=== PATIENT | male | born 1950 | race Caucasian/White ===

== ENCOUNTER → 2016-11-02 | Outpatient (CLI) | payer MEDICARE, MEDICAID ==
[2016-11-02 15:53] LABS: Blood Urea Nitrogen 15 mg/dL (9-20); Non-African American GFR(MDRD) >60 (>60 ml/min/1.73 sqM)
--- NOTE | 2016-11-02 16:48 | CT ---
EXAMINATION TYPE: CT abdomen pelvis w con DATE OF EXAM: 11/02/2016 4:40 PM COMPARISON: NONE HISTORY: Pt states of left side abdominal pain x1 month. CT DLP: 851.7 mGycm CONTRAST: CT scan of the abdomen and pelvis is performed with Oral Contrast and with IV Contrast, patient injec pam with 100 mL of Omnipaque 300. FINDINGS: LUNG BASES-: No visible nodule. No infiltrate. LIVER/GB: No calcified gallstones. No space occupying hepatic lesion. Biliary tree is of normal ca liber. PANCREAS: No inflammation. No distinct mass. SPLEEN: No splenic enlargement. No lesion seen. ADRENALS: No nodule. No thickening. KIDNEYS/BLADDER: No hydronephrosis. No nephrolithiasis. No disctinct renal mass. Urinary bladder g rossly unremarkable. BOWEL: Normal appendix. Normal bowel caliber. No inflammation. Sigmoid diverticulosis without diver ticulitis. Small sliding-type hiatal hernia noted. GENITAL ORGANS: No gross abnormality. LYMPH NODES: No greater than 1cm abdominal or pelvic lymph nodes are appreciated. AORTA: No significant abnormality. OSSEOUS STRUCTURES: No significant abnormality is seen. OTHER: No significant additional abnormality is seen. IMPRESSION: 1. Small sliding-type hiatal hernia. 2. Sigmoid diverticulosis without diverticulitis.
== END | disposition home or self-care (01) ==
LOC: RADCTMAIN 15:04
PROVIDERS: ATTEND Internal Medicine
DX: K57.30 Diverticulosis of large intestine without perforation or abscess without bleeding (principal); K44.9 Diaphragmatic hernia without obstruction or gangrene; R10.9 Unspecified abdominal pain
CPT/HCPCS: 82565; 84520; 74177; 36415; Q9967

== ENCOUNTER → 2017-07-02 | Outpatient (CLI) | payer MEDICARE, MEDICAID ==
[2017-07-02 10:18] LABS: Appearance,Urine Clear (Clear); Bilirubin,Urine Negative (Negative); Glucose,Urine (UA) Negative (Negative); Ketones,Urine Negative (Negative); Leukocyte Esterase,Urine Negative (Negative); Nitrite,Urine Negative (Negative); Protein,Urine Negative (Negative); UA Billing (MACRO vs. MICRO) CHEM; Urobilinogen,Urine <2.0 mg/dL (<2.0)
[2017-07-02 10:20] LABS: CH 29.8; CHCM 32.5; HCT 46.4 % (39.0-53.0); HDW 2.52; HGB 14.5 gm/dL (13.0-17.5); MCH 28.8 pg (25.0-35.0); MCHC 31.2 g/dL (31.0-37.0); MCV 92.3 fL (80.0-100.0); Mean Platelet Volume 7.7; RBC 5.03 m/uL (4.30-5.90); RDW 14.6 % (11.5-15.5); WBC 5.3 k/uL (3.8-10.6)
[2017-07-02 10:37] LABS: Partial Thromboplastin Time 23.9 sec (22.0-30.0); Prothrombin Time 10.2 sec (9.0-12.0)
[2017-07-02 10:43] LABS: Potassium 5.3 mmol/L (3.5-5.1)
--- NOTE | 2017-07-02 14:19 | XR ---
EXAMINATION TYPE: XR chest 2V DATE OF EXAM: 07/02/2017 COMPARISON: NONE INDICATION: Asthma TECHNIQUE: Frontal and lateral views of the chest are obtained. FINDINGS: The heart size is normal. The pulmonary vasculature is normal. The lungs are clear. IMPRESSION: 1. No acute pulmonary process.
== END | disposition home or self-care (01) ==
LOC: LABWHC1 09:20
DX: Z01.818 Encounter for other preprocedural examination (principal)
CPT/HCPCS: 36415; 71020; 80051; 81003; 82947; 85027; 85610; 85730

== ENCOUNTER → 2018-01-11 | Outpatient (CLI) | payer MEDICARE, MEDICAID ==
--- NOTE | 2018-01-11 14:50 | CONS ---
CONSULTATION Consultation note for sleep apnea. A 67-year-old male patient, who was involved in a single episode of atrial fibrillation in July of 2017. The patient is converted and currently is back to normal sinus rhythm on a combination of metoprolol, and Eliquis. Her cardiac catheterization was negative for coronary artery disease. Known to have bronchial asthma, maintained on Symbicort. The patient is referred to me for evaluation of sleep apnea. He has mild soft snoring especially when he sleeps on his back. Occasional nocturia and a few instances he was waking up gasping for air. However this has not become a recurrent problem. No hypersomnia or drowsiness or sleepiness during the day. He does not take any naps. He does not falling asleep during day-to-day activities or driving. He goes to bed around 10:30 pm, wakes up 7:00 am in the morning. He states his sleep quality to be solid and decent. No restlessness in lower extremities. No nocturnal palpitations or chest pain or shortness of breath. PAST MEDICAL HISTORY: 1. Paroxysmal atrial fibrillation. 2. Bronchial asthma. PAST SURGICAL HISTORY: 1. Cataract surgery. 2. Right knee replacement. DRUG ALLERGIES: Not known. OUTPATIENT MEDICATIONS: Include metoprolol 25 mg once a day. Flecainide twice a day. Eliquis 5 mg p.o. twice a day. Singular 10 mg p.o. daily, Protonix 40 mg p.o. daily, Symbicort 160/4.5 once a day. SOCIAL HISTORY: Nonsmoker. Drinks 1 glass of wine every night. No history of alcohol, no history of IV drugs. FAMILY HISTORY: Negative for sleep apnea. REVIEW OF SYSTEMS: 12-point review of system was done and positive findings are mentioned above in history of present illness. No reported insomnia. No choking. No sleepwalking. No dry mouth. No anxiety or panic attacks. No palpitation. No heartburn. No sweating. No sleep talking. No restlessness in lower extremities. No sexual dysfunction. No claustrophobia. No depression. No nocturnal shortness of breath or chest pain or any swelling in lower extremities. PHYSICAL EXAMINATION: BP is 131/79, pulse 57, respirations 14, temperature 98.1, saturation 96% on room air. Weight is 188. Height is 5 feet 9 inches, BMI is 27.7, neck size 15-1/2 inches, [place] score is at 3. GENERAL APPEARANCE: Calm, comfortable. Head is atraumatic, normocephalic. NECK: Supple. There is grinding of the teeth, and there has been a significant overbite with crowding of posterior pharynx. Mallampati class IV. micrognathia. LUNGS: Clear to auscultation. HEART: Sounds regular rhythm. Normal S1, S2. No S3, S4. No murmurs. ABDOMEN: Soft, nontender. No organomegaly. EXTREMITIES: No edema. No cyanosis or clubbing. NEUROLOGIC: The patient is alert and oriented x3. There is no focal neurological deficits. PSYCHIATRIC: The patient is appropriate mood and affect. SKIN: Negative for any wounds or ulceration. IMPRESSION: 1. Paroxysmal atrial fibrillation. The patient had significant episode of atrial fibrillation which has recovered and patient is back to his normal sinus rhythm. Concern for obstructive sleep apnea based on his snoring. Anatomically the patient had an overbite and Mallampati class IV. He has mild snoring, yet no major hypersomnia or sleepiness. [place] score is only at 3. 2. Bronchial asthma, currently inactive and stable. PLAN: Proceed with a home sleep study as a screening tool for sleep apnea. Will evaluate this patient for any sleep breathing disorder. Rule out any nocturnal oxygen desaturation. Looking for any significant sleep time activities that could potentially contribute to his cardiac arrhythmia. Encourage weight loss. Sleep in a sidewise body position. Avoid alcohol drinking late at night. We will continue to follow. MMODL / IJN: [id number] /
== END | disposition home or self-care (01) ==
LOC: SLEEP 10:26
PROVIDERS: ATTEND Internal Medicine Critical Care Medicine
DX: I48.0 Paroxysmal atrial fibrillation (principal); J45.909 Unspecified asthma, uncomplicated; Z79.01 Long term (current) use of anticoagulants; Z79.899 Other long term (current) drug therapy; Z98.49 Cataract extraction status, unspecified eye; Z96.651 Presence of right artificial knee joint
CPT/HCPCS: 99211

== ENCOUNTER → 2018-07-14 | Outpatient (CLI) | payer MEDICARE, MEDICAID ==
[2018-07-14 09:33] LABS: HGB 14.1 gm/dL (13.0-17.5); MCH 28.5 pg (25.0-35.0); MCHC 30.6 g/dL (31.0-37.0); MCV 93.3 fL (80.0-100.0); Mean Platelet Volume 7.1; Platelet Count 218 k/uL (150-450); RBC 4.92 m/uL (4.30-5.90); RDW 14.1 % (11.5-15.5); WBC 5.9 k/uL (3.8-10.6)
[2018-07-14 10:18] LABS: ALT 26 U/L (21-72); AST 20 U/L (17-59); Alkaline Phosphatase 56 U/L (38-126); Anion Gap 7 mmol/L; Blood Urea Nitrogen 16 mg/dL (9-20); Calcium 9.6 mg/dL (8.4-10.2); Carbon Dioxide 26 mmol/L (22-30); Chloride 110 mmol/L (98-107); Cholesterol 201 mg/dL (<200); Glucose 98 mg/dL (74-99); HDL Cholesterol 49 mg/dL (40-60); LDL Cholesterol,Calculated 134 mg/dL (0-99); Potassium 4.9 mmol/L (3.5-5.1); Sodium 143 mmol/L (137-145); Total Bilirubin 0.8 mg/dL (0.2-1.3); Total Protein 6.5 g/dL (6.3-8.2); Triglycerides 88 mg/dL (<150)
[2018-07-14 10:26] LABS: Appearance,Urine Clear (Clear); Bilirubin,Urine Negative (Negative); Blood,Urine Trace (Negative); Color,Urine Yellow; Glucose,Urine (UA) Negative (Negative); Ketones,Urine Negative (Negative); Leukocyte Esterase,Urine Negative (Negative); Mucus,Urine Occasional /hpf; Nitrite,Urine Negative (Negative); PH, Urine 5.5 (5.0-8.0); Protein,Urine Trace (Negative); RBC,Urine 3 /hpf (0-5); Urobilinogen,Urine <2.0 mg/dL (<2.0); WBC,Urine <1 /hpf (0-5)
[2018-07-14 10:39] LABS: Prostate Specific Antigen 0.24 ng/mL (0.00-4.00)
== END | disposition home or self-care (01) ==
LOC: LABWHC1 08:27
PROVIDERS: ATTEND Internal Medicine
DX: E78.5 Hyperlipidemia, unspecified (principal); N40.1 Benign prostatic hyperplasia with lower urinary tract symptoms; K21.9 Gastro-esophageal reflux disease without esophagitis; Z12.5 Encounter for screening for malignant neoplasm of prostate
CPT/HCPCS: 36415; 80053; 80061; 81001; 84153; 85027

== ENCOUNTER 2019-10-10 08:01 | Day surgery (SDC) | payer MEDICAID, MEDICARE ==
[2019-10-05 13:44] VITALS: BMI 25.5
[~2019-10-10 08:01] MED LIST: LACTATED RINGERS 1,000 ML IV SCH; LIDOCAINE 1% 20 ML VIAL (10MG/ML) FOR IV START INTRADERMA PRN
[2019-10-10 08:55] VITALS: TEMP 98
[2019-10-10] MEDS ORDERED: PROPOFOL 10 MG/ML 20 ML VIAL IV ONE (09:16)
[2019-10-10 09:52] VITALS: PULSE 61; RESP 16
--- NOTE | 2019-10-10 09:55 | P.PCN ---
Date of Procedure: 10/10/19 Description of Procedure: BRIEF HISTORY: Patient is a 69-year-old male presenting for outpatient colonoscopy for evaluation of positive Cologard. Last colonoscopy was in 2008 and essentially normal. He denies any bowel habits or abdominal pain reported. Patient underwent testing with Cologard which she states was positive. PROCEDURE PERFORMED: Colonoscopy with polypectomy. PREOPERATIVE DIAGNOSIS: Positive Cologard, last colonoscopy 2008. ESTIMATED BLOOD LOSS: Minimal. IV sedation per Anesthesia. PROCEDURE: After informed consent was obtained, the patient, was brought into the endoscopy unit. IV sedation was administered by Anesthesia under continuous monitoring. Digital rectal examination was normal. Initially the Olympus CF-190 flexible video colonoscope was then inserted in the rectum, gradually advanced into the cecum without any difficulty. Careful examination was performed as the scope was gradually being withdrawn. Ileocecal valve and the appendiceal orifice were visualized and appeared normal. The terminal ileum was intubated and appeared normal. Prep was excellent. Mucosa of the cecum, ascending colon, transverse colon, descending colon, sigmoid colon, and rectum appeared normal. Diminutive 1 mm ileocecal valve polyp removed with cold forceps. Diminutive 2 mm ascending colon polyp removed with cold forcep polypectomy. Diminutive 2 mm sigmoid colon polyp removed with cold forcep polypectomy. Large 13 mm pedunculated sigmoid colon polyp removed with hot snare polypectomy. A few scattered sigmoid diverticula noted. Retroflexion was performed in the rectum and no lesions were seen. The patient tolerated the procedure well. IMPRESSION: 3 diminutive polyps removed with cold forceps from the ileocecal valve, ascending colon and sigmoid colon. Large pedunculated sigmoid polyp removed with hot snare polypectomy. Mild sigmoid diverticulosis. RECOMMENDATIONS: Findings of this examination were discussed with the patient and his . Okay to resume diet. OKAY to resume medications today except for Eliquis therapy which should be held for an additional 48 hours. Await pathology from polypectomies. Anticipate repeat colonoscopy in 3 years for high-risk colon polyps.
[2019-10-10 10:10] VITALS: BP 146/90
== END 2019-10-10 10:41 | disposition home or self-care (01) ==
LOC: ORWHC2ENDO 08:01
PROVIDERS: ATTEND Internal Medicine
DX: D12.0 Benign neoplasm of cecum (principal); D12.5 Benign neoplasm of sigmoid colon; K63.5 Polyp of colon; K57.30 Diverticulosis of large intestine without perforation or abscess without bleeding; I48.91 Unspecified atrial fibrillation; J44.9 Chronic obstructive pulmonary disease, unspecified; Z79.51 Long term (current) use of inhaled steroids; Z79.01 Long term (current) use of anticoagulants; Z79.899 Other long term (current) drug therapy; Z98.890 Other specified postprocedural states
CPT/HCPCS: 88305; 45380; 45385; J2704

== ENCOUNTER 2023-03-16 07:55 | Day surgery (SDC) | payer MEDICARE ==
[2023-03-12 09:44] VITALS: BMI 25.1
[~2023-03-16 07:55] MED LIST changes: -LIDOCAINE 1% 20 ML VIAL (10MG/ML) FOR IV START INTRADERMA PRN
[2023-03-16 08:22] VITALS: RESP 16; TEMP 97
[2023-03-16] MEDS ORDERED: LIDOCAINE 1% (10MG/ML) FOR IV START INTRADERMA ONE (08:29)
--- NOTE | 2023-03-16 08:35 | P.GSHP ---
History of Present Illness H&P Date: 03/16/23 Chief Complaint: History of colon polyps, screening 73-year-old male here for colonoscopy. Last colonoscopy 2-3 years ago. Patient apparently had polyps at the time and was told to do a short-term follow-up. Prior to that has not had polyps. No family history of colon cancer. No bowel complaints. Past Medical History Past Medical History: Atrial Fibrillation, Asthma, COPD Additional Past Medical History / Comment(s): states "failed cologaurd" History of Any Multi-Drug Resistant Organisms: None Reported Past Surgical History: Heart Catheterization, Joint Replacement, Orthopedic Surgery Additional Past Surgical History / Comment(s): total right knee, grisel cataracts Past Anesthesia/Blood Transfusion Reactions: No Reported Reaction Smoking Status: Smoker, current status unknown - Past Family History Mother Family Medical History: No Reported History Father Family Medical History: Cancer Additional Family Medical History / Comment(s): lung brain Medications and Allergies Home Medications Medication Instructions Recorded Confirmed Type Budesonide/Formoterol Fumarate 2 puff INHALATION RT-BID PRN 08/04/17 03/12/23 History [Symbicort 160-4.5 Mcg Inhaler] Pantoprazole Sodium [Protonix] 40 mg PO DAILY 08/04/17 03/12/23 History Apixaban [Eliquis] 5 mg PO BID #60 tab 08/06/17 03/12/23 Rx Metoprolol Tartrate 25 mg PO BID 03/12/23 03/12/23 History Mirabegron [Myrbetriq] 50 mg PO DAILY 03/12/23 03/12/23 History Propafenone [Rythmol] 1 tab PO BID 03/12/23 03/12/23 History Rosuvastatin [Crestor] 5 mg PO DAILY 03/12/23 03/12/23 History Tamsulosin [Flomax] 0.4 mg PO DAILY 03/12/23 03/12/23 History Allergies Allergy/AdvReac Type Severity Reaction Status Date / Time No Known Allergies Allergy Verified 03/16/23 08:12 Surgical - Exam Vital Signs Temp Pulse Resp BP Pulse Ox 97 F L 74 16 124/74 98 03/16/23 08:21 03/16/23 08:21 03/16/23 08:21 03/16/23 08:21 03/16/23 08:21 Physical exam: General: Well-developed, well-nourished HEENT: Normocephalic, sclerae nonicteric Abdomen: Nontender, nondistended Extremities: No edema Neuro: Alert and oriented Assessment and Plan (1) Colon cancer screening Narrative/Plan: Will proceed with colonoscopy at this time. Current Visit: Yes Status: Acute Code(s): Z12.11 - ENCOUNTER FOR SCREENING FOR MALIGNANT NEOPLASM OF COLON SNOMED Code(s): 048028995
[2023-03-16] MEDS ORDERED: PROPOFOL 10 MG/ML 20 ML VIAL IV ONE (08:37)
--- NOTE | 2023-03-16 08:49 | P.PCN ---
Date of Procedure: 03/16/23 Procedure(s) Performed: PREOPERATIVE DIAGNOSIS: Colon cancer screening with history of polyps POSTOPERATIVE DIAGNOSIS: Ascending colon polyp, rectal polyp, diverticulosis PROCEDURE: Colonoscopy with snare polypectomy ANESTHESIA: MAC SURGEON: Brent Leigh M.D. SPECIMENS: Polyps ENDOSCOPIC PROCEDURE: The patient was placed on the endoscopy table in the left decubitus position. The Olympus colonoscope was inserted into the anus and passed under direct visualization to the base of the cecum. The appendiceal orifice was visualized. From that point the scope was slowly withdrawn inspecting all surfaces carefully. There were no neoplastic inflammatory or polypoid lesions throughout the cecum. In the ascending colon a small polyp was seen and removed using the snare with cautery technique. The transverse descending and sigmoid colon appeared normal. In the rectum another small polyp was seen and removed in a similar technique. There was mild left-sided diverticulosis. Digital rectal examination was normal. The patient was taken to the recovery room in stable condition per anesthesia guidelines. RECOMMENDATIONS: Await biopsy results. Anticipate repeat colonoscopy 5 years
[2023-03-16 09:16] VITALS: BP 138/78; PULSE 63
== END 2023-03-16 09:37 | disposition home or self-care (01) ==
LOC: ORWHC2ENDO 07:55
PROVIDERS: ATTEND Surgery
DX: Z12.11 Encounter for screening for malignant neoplasm of colon (principal); D12.2 Benign neoplasm of ascending colon; D12.8 Benign neoplasm of rectum; K57.30 Diverticulosis of large intestine without perforation or abscess without bleeding; I48.91 Unspecified atrial fibrillation; J44.9 Chronic obstructive pulmonary disease, unspecified; F17.200 Nicotine dependence, unspecified, uncomplicated; Z79.51 Long term (current) use of inhaled steroids; Z79.01 Long term (current) use of anticoagulants; Z79.899 Other long term (current) drug therapy
CPT/HCPCS: 88305; 45385; J2704

== ENCOUNTER → 2023-09-09 | Outpatient (CLI) | payer MEDICARE ==
--- NOTE | 2023-09-09 10:37 | XR ---
EXAMINATION TYPE: XR chest 2V DATE OF EXAM: 09/09/2023 COMPARISON: 08/04/2017 HISTORY: Shortness of breath TECHNIQUE: Frontal and lateral views of the chest are obtained. FINDINGS: Scattered senescent parenchymal changes noted. Hyperinflation compatible with COPD. No evidence for infiltrate. No evidence for atelectasis. Heart size is stable. Mediastinal structures are stable and grossly unremarkable. No evidence for hilar prominence. Degenerative changes dorsal spine. IMPRESSION: 1. No evidence for acute pulmonary disease.
== END | disposition home or self-care (01) ==
LOC: RADXRMAIN 10:15
PROVIDERS: ATTEND Internal Medicine
DX: R06.02 Shortness of breath (principal); R05.9 Cough, unspecified
CPT/HCPCS: 71046

== ENCOUNTER → 2024-03-20 | Outpatient (CLI) | payer MEDICARE ==
[2024-03-21 03:48] LABS: ALT 38 U/L (10-49); AST 25 U/L (14-35); Albumin 4.7 g/dL (3.8-4.9); Albumin/Globulin Ratio 2.35 Ratio (1.60-3.17); Alkaline Phosphatase 76 U/L (41-126); Blood Urea Nitrogen 15.5 mg/dL (9.0-27.0); Calcium 9.9 mg/dL (8.7-10.3); Carbon Dioxide 24.1 mmol/L (21.6-31.8); Chloride 104 mmol/L (96-109); Glucose 114 mg/dL (70-110); Potassium 4.6 mmol/L (3.5-5.5); Sodium 142 mmol/L (135-145); T4, Free (Free Thyroxine) 1.21 ng/dL (0.80-1.80); Total Bilirubin 0.4 mg/dL (0.3-1.2); Total Protein 6.7 g/dL (6.2-8.2)
== END | disposition home or self-care (01) ==
LOC: LABWHC1 14:27
PROVIDERS: ATTEND Internal Medicine Interventional Cardiology
DX: I10 Essential (primary) hypertension (principal); I48.0 Paroxysmal atrial fibrillation
CPT/HCPCS: 36415; 80053; 84439; 84443

== ENCOUNTER → 2024-09-05 | Outpatient (CLI) | payer MEDICARE ==
--- NOTE | 2024-09-11 16:32 | US ---
EXAMINATION TYPE: US thyroid st tissue head/neck DATE OF EXAM: 09/05/2024 COMPARISON: EXAMINATION TYPE: US thyroid st tissue head/neck DATE OF EXAM: 09/05/2024 COMPARISON: NONE CLINICAL INDICATION: Male, 74 years old with history of R42 DIZZINESS GIDDINESS; Lump in neck. TECHNIQUE: FINDINGS: Scanned bilateral neck no abnormalities seen. No evidence for mass or organizing fluid co llection or lymphadenopathy. IMPRESSION: No evidence for lymphadenopathy or mass. [facility], , 09/11/2024 4:30 PM
== END | disposition home or self-care (01) ==
LOC: RADUSWWP 12:57
PROVIDERS: ATTEND Internal Medicine Hematology & Oncology
DX: R42 Dizziness and giddiness (principal); R22.1 Localized swelling, mass and lump, neck
CPT/HCPCS: 76536

== ENCOUNTER → 2025-02-08 | Outpatient (CLI) | payer MEDICARE ==
[2025-02-08 12:08] LABS: INR 0.9 (<1.2); Partial Thromboplastin Time 24.5 sec (22.0-30.0); Prothrombin Time 10.6 sec (10.0-12.5)
[2025-02-08 15:35] LABS: HCT 43.2 % (39.6-50.0); HGB 13.8 g/dL (13.0-17.0); MCV 89.3 FL (80.0-97.0); RBC 4.84 X 10*6/uL (4.40-5.60); WBC 8.27 X 10*3/uL (4.50-10.00)
[2025-02-08 15:36] LABS: MCH 28.5 pg (27.0-32.0); MCHC 31.9 g/dL (32.0-37.0); Mean Platelet Volume 9.7 FL (9.5-12.2); NRBC Per 100 WBC 0 X 10*3/uL (0.00-0.01); Platelet Count 300 X 10*3/uL (140-440); RDW 13.2 % (11.5-14.5)
[2025-02-08 15:47] LABS: ALT 20 U/L (10-49); AST 22 U/L (14-35); Albumin 4.4 g/dL (3.8-4.9); Albumin/Globulin Ratio 1.83 Ratio (1.60-3.17); Alkaline Phosphatase 103 U/L (41-126); BUN/Creat Ratio 15.22 Ratio (12.00-20.00); Blood Urea Nitrogen 13.7 mg/dL (9.0-27.0); Calcium 9.9 mg/dL (8.7-10.3); Carbon Dioxide 23.8 mmol/L (21.6-31.8); Chloride 104 mmol/L (96-109); Globulin 2.4 g/dL (1.6-3.3); Glucose 105 mg/dL (70-110); Potassium 4.2 mmol/L (3.5-5.5); Sodium 140 mmol/L (135-145); Total Bilirubin 0.4 mg/dL (0.3-1.2); Total Protein 6.8 g/dL (6.2-8.2)
== END | disposition home or self-care (01) ==
LOC: LABPAT 10:52
PROVIDERS: ATTEND Orthopaedic Surgery
DX: Z01.812 Encounter for preprocedural laboratory examination (principal); Z22.322 Carrier or suspected carrier of Methicillin resistant Staphylococcus aureus; M16.12 Unilateral primary osteoarthritis, left hip
CPT/HCPCS: 80053; 85027; 85610; 85730; 86850; 86900; 86901; 87070; 93005

== ENCOUNTER 2025-02-20 05:39 | Day surgery (SDC) | payer MEDICARE ==
[2025-02-14 15:05] VITALS: BMI 25.8
[~2025-02-20 05:39] MED LIST changes: -LACTATED RINGERS 1,000 ML IV SCH; +LIDOCAINE 1% (10MG/ML) FOR IV START INTRADERMA PRN; +TRANEXAMIC 1,000 MG/100ML-NACL 1,000 MG in SALINE 1 100ML.BAG IVPB PRN
[2025-02-20] MEDS: IV FLUID CONTINUATION 1,000 ML IV ONE (06:13)
[2025-02-20] MEDS: LACTATED RINGERS 1,000 ML IV SCH (06:13)
[2025-02-20] MEDS: GABAPENTIN 300 MG CAP PO PRN (06:15)
[2025-02-20] MEDS: ACETAMINOPHEN TAB 500 MG TAB PO PRN (06:15)
[2025-02-20] MEDS: MELOXICAM 7.5 MG TAB PO PRN (06:15)
[2025-02-20] MEDS: DEXAMETHASONE SOD PHOSPHATE 4 MG/ML 1 ML VIAL IV ONE (06:15)
[2025-02-20] MEDS: ONDANSETRON 4 MG/2 ML VIAL IVP ONE (06:16)
[2025-02-20] MEDS: MIDAZOLAM 2 MG/2 ML VIAL IV ONE (06:42)
[2025-02-20] MEDS ORDERED: HYDROmorphone 0.5 MG/0.5 ML SYRINGE IVP PRN ×4 (07:00→07:19)
[2025-02-20] MEDS: ROPIVACAINE 5 MG/ML 30 ML VIAL MISCELLANE ONE ×2 (07:07→08:23)
[2025-02-20] MEDS ORDERED: MAGNESIUM HYDROXIDE 2,400 MG/30 ML CUP PO PRN (07:19)
[2025-02-20] MEDS ORDERED: NALOXONE 0.4 MG/ML 1 ML VIAL IV PRN (07:19)
[2025-02-20] MEDS ORDERED: ROPIVACAINE 5 MG/ML 30 ML VIAL ONE (07:21)
[2025-02-20] MEDS ORDERED: TRANEXAMIC 1,000 MG/100ML-NACL PREMIX BAG ONE (07:21)
[2025-02-20] MEDS ORDERED: PROPOFOL 10 MG/ML 20 ML VIAL IV ONE (07:21)
[2025-02-20] MEDS ORDERED: MIDAZOLAM 2 MG/2 ML VIAL ONE (07:21)
[2025-02-20] MEDS ORDERED: DEXAMETHASONE SOD PHOSPHATE 4 MG/ML 1 ML VIAL ONE (07:21)
[2025-02-20] MEDS ORDERED: ePHEDrine 50 MG/ML 1 ML VIAL ONE (07:21)
[2025-02-20] MEDS: ceFAZolin 1,000 MG in SODIUM CHLORIDE 0.9% 1,000 ML IRRIGATION ONE (07:23)
[2025-02-20] MEDS: ceFAZolin 2 GM in DEXTROSE 5% IN WATER 50 ML IVPB PRN (07:23)
--- NOTE | 2025-02-20 08:30 | P.OP ---
Date of Procedure: 02/20/25 Preoperative Diagnosis: Severe osteoarthritis left hip Postoperative Diagnosis: Severe osteoarthritis left hip Procedure(s) Performed: Left total hip arthroplasty with a direct anterior approach Implants: [employer] Polarstem standard size 6 with a collar [employer] R3, 3 hole hemispherical acetabular shell, 52 mm [employer] Reflection 6.5 mm cancellus screws, 20 mm 2 [employer] R3, XLPE 20 acetabular liner [employer] Oxinium femoral head 36 mm, +0 All components were press-fit. The articulation is Oxinium on polyethylene. Anesthesia: spinal Surgeon: Jose Manuel Arevalo Livestock Rancher #1: Jackeline Hood Estimated Blood Loss (ml): 200 Pathology: none sent Condition: stable Disposition: PACU Indications for Procedure: After failure of conservative treatment we discussed the surgical and nonsurg ical treatment options at length. Patient wishes to proceed with a total hip arthroplasty with a direct anterior approach. Complications specific to this procedure were discussed at length, including but not limited to infection, leg length discrepancy, dislocation, nerve injury, and fracture. Covid-19 was also discussed at length with the patient, and they are aware of the current policies and procedures. The patient was given the option of delaying surgery, but they elect to proceed knowing these risks. Patient is aware of all these complications and informed consent was obtained Operative Findings: The operative findings are consistent with severe osteoarthritis of the left hip Description of Procedure: The patient was seen and evaluated in the preoperative area and the consent was reviewed. The operative site was marked with a skin marker. The patient verified the procedure and operative site. A ISAEL block was placed by anesthesia in the preoperative area. The patient was then brought to the operating room and given preoperative antibiotics intravenously. 1 g of Tranexamic acid was also given intravenously. A spinal anesthetic was administered by the anesthesia department. The patient was then placed on the Norman table with the bony prominences well-padded. The hip area was then prepped with a ChloraPrep solution and draped in the usual sterile fashion. A universal timeout was then performed, which confirmed the patient's name, surgical site, ALLERGIES, and procedure being performed on the consent. Next the incision site was located at 1 cm distal and 4 cm lateral to the anterior superior iliac spine. The skin and subcutaneous tissues were sharply incised. Incision was carefully dissected down to the fascia overlying the tensor fascia segundo muscle. This fascia was then incised in line with the muscle fibers. Care was taken to stay laterally in order to avoid injuring the lateral femoral c utaneous nerve. Next, using blunt finger dissection, the tensor fascia segundo muscle was dissected off its investing fascia. The muscle was then carefully retracted laterally with a cobra retractor over the lateral neck of the femur. Next, the circumflex vessels were identified and cauterized using the Aquamantis device. The anterior hip capsule was then exposed. The capsule was then opened and an inverted T fashion. The retractors were then placed intracapsularly. The retractors were maintained intracapsular throughout the procedure. The proximal femur was then visualized. Fluoroscopic x-rays were then taken in order to evaluate the preoperative leg lengths. A small amount of traction was placed on the leg. The femoral neck was then osteotomized at the appropriate level above the lesser trochanter. A small wedge of bone was then removed from the remaining femoral head. Next, using a corkscrew the femoral head was removed from the acetabulum. On gross visual inspection, the femoral head had complete loss of articular cartilage and multiple periarticular osteophytes. The femoral head was then measured. Attention was then turned to the acetabulum. The acetabulum was exposed and any remaining labrum was excised. Sequential reaming of the acetabulum was performed using fluoroscopic guidance until there was a good bed of bleeding cancellus bone. When the appropriate size was reached, a trial was then placed. The position and fit of the trial was checked with fluoroscopy. The trial was then removed. Then, using fluoroscopic guidance, the final implant was impacted at 20 of anteversion and 40 of abduction, and fully seated in the acetabulum. 2 screws were then placed in the acetabulum. Again fluoroscopy was used to check position of the screws. Next, the liner was then impacted, with a 20 elevated liner located in the anterior superior quadrant. Component locking was confirmed. Attention was then directed to the femur. With the aid of the Norman table, the femur was externally rotated to approximately 130, extended, and adducted under the opposite leg. A side hook was then placed under the proximal femur, and the side hook elevator was used to elevate the proximal femur while releasing the capsule. Retractors were then placed. A capsular release was performed, as well as a release of the conjoined tendon, which afforded excellent visu alization of the proximal femur. Next, a box osteotome was used to lateralize the proximal femur. A baster hand was then used to locate the femoral canal. Sequential broaching was then performed with appropriate size which afforded excellent fixation in the proximal femur. A trial was then placed with appropriate head and neck, and the hip was gently reduced with the aid of the Norman table. Fluoroscopy was then used to check position of the components, as well as to evaluate the leg lengths and offset. The leg lengths and offset were measured as closely as possible to ensure stability of the hip. The hip was then gently dislocated and the trials were then removed. Final implants were then impacted and the hip was again reduced. Final fluoroscopic x-rays confirmed that the components were in anatomic position. The leg lengths and offset were measured and were found to coincide with the trial measurements. The hip was also taken through range of motion, and found to be stable. The hip was then copiously irrigated with antibiotic solution with pulsatile lavage. The hip was then irrigated with Irrisept solution. The soft tissues were then injected with a ropivacaine solution. A second dose of 1 g of Tranexamic acid was also given intravenously. The fascia was then closed with 2-0 strata fix suture. The subcutaneous tissue was closed with 3-0 Vicryl. The subcuticular tissue was closed with 3-0 moncryl suture. The skin was then closed with Exofin skin glue. After the glue and dried, and Optifoam silver impregnated dressing was applied. The patient was then transferred to the recovery room in stable condition. The assistant engineer YANELY Alvarez was required due to the complexity of surgery, and the need for skilled surgical tech for positioning, draping, exposure, retraction, and closure of the wound.
[2025-02-20] MEDS: LACTATED RINGERS 1,000 ML IV ONE (08:39)
--- NOTE | 2025-02-20 09:02 | XR ---
EXAMINATION TYPE: XR Hip Limited LT, FL guidance operating room DATE OF EXAM: 02/20/2025 8:52 AM COMPARISON: None CLINICAL INDICATION: Male, 74 years old with history of M16.12 LEFT HIP OSTEOARTHRITIS; PHH, pain FLUOROSCOPY: 30.5 sec fl 0.8711 dap left anterior hip Sequential intraoperative imaging during left hip total arthroplasty. Initial severe left hip OA note d. Final image shows near anatomic alignment without evident periprosthetic fracture. 4 images are submitted. [facility], Workstation: [facility], 02/20/2025 9:00 AM
--- NOTE | 2025-02-20 09:32 | XR ---
EXAMINATION TYPE: XR Hip Limited LT DATE OF EXAM: 02/20/2025 9:28 AM COMPARISON: None CLINICAL INDICATION: Male, 74 years old with history of Status post hip surgery, assess surgical verenice macias; PHH, pain TECHNIQUE: XR Hip Limited LT; Frontal view FINDINGS: Post arthroplasty changes, hardware is intact, alignment is appropriate. No evidence of fra cture. Postoperative changes of the soft tissues with subcutaneous gas. No evidence of any acute osse ous pathology or joint dislocation. IMPRESSION: Hip arthroplasty with hardware intact and in appropriate alignment. No acute fracture. [facility], , 02/20/2025 9:30 AM
[2025-02-20] MEDS: SODIUM CHLORIDE 0.9% 1,000 ML IV SCH (10:55)
--- NOTE | 2025-02-20 11:02 | P.ANPRN ---
Procedure Note - Anesthesia - Nerve Block Performed Left Jamshid Single Time Out Performed: Yes ([id number]) Date of Procedure: 02/20/25 Procedure Start Time: 06:43 Procedure Stop Time: 06:47 Location of Patient: PreOp Indication: Acute Post-Operative Pain, Requested by Surgeon Specifically requested for management of pain by DrAlyssia: Jose Manuel Arevalo Sedation Type: Sedate with meaningful contact maintained Preparation: Sterile Prep Position: Supine Catheter: None Needle Types: Pajunk Needle Gauge: 21 Ultrasound used to visualize needle placement: Yes Ultrasound used to observe medication spread: Yes Injectate: 0.5% Ropivacaine (see comment for volume) (30CC + DECADRON 4MG) Blood Aspirated: No Pain Paresthesia on Injection Noted: No Resistance on Injection: Normal Image Stored and Saved: Yes Events: Uneventful and Well Tolerated
[2025-02-20] MEDS ORDERED: SYMBICORT 160-4.5 MCG INHALER INHALATION PRN (12:49)
[2025-02-20] MEDS: HYDROcodone/APAP 7.5-325MG 1 EACH TAB PO PRN (13:16)
[2025-02-20] MEDS: ONDANSETRON 4 MG/2 ML VIAL IVP PRN (14:08)
[2025-02-20] MEDS: droPERidol 2.5 MG/ML VIAL IVP ONE (14:55)
[2025-02-20] MEDS: ceFAZolin 2 GM in DEXTROSE 5% IN WATER 50 ML IVPB SCH (15:43)
[2025-02-20] MEDS ORDERED: APIXABAN 5 MG TAB PO SCH (21:00)
[2025-02-20] MEDS: METOPROLOL TARTRATE 25 MG TAB PO SCH (21:52)
[2025-02-20] MEDS: SENNOSIDES-DOCUSATE SODIUM 1 EACH TAB PO SCH (21:52)
[2025-02-20] MEDS: ATORVASTATIN 10 MG TAB PO SCH (21:52)
[2025-02-20] MEDS: TAMSULOSIN 0.4 MG CAP.ER.24H PO SCH (21:52)
[2025-02-21] MEDS: PANTOPRAZOLE 40 MG TABLET PO SCH (05:12)
[2025-02-21] MEDS: HYDROcodone/APAP 7.5-325MG 1 EACH TAB PO PRN (05:13)
[2025-02-21 07:30] VITALS: BP 116/62; PULSE 56; RESP 17; TEMP 98.4
[2025-02-21] MEDS: amLODIPine 5 MG TAB PO SCH (07:41)
[2025-02-21] MEDS: APIXABAN 5 MG TAB PO SCH (07:48)
[2025-02-21 08:26] LABS: Basophils # (A) 0.01 X 10*3/uL (0.00-0.10); Basophils % (A) 0.1 %; Eosinophils # (A) 0 X 10*3/uL (0.04-0.35); Eosinophils % (A) 0 %; HCT 32.9 % (39.6-50.0); HGB 10.6 g/dL (13.0-17.0); Lymphocytes # (A) 0.94 X 10*3/uL (0.90-5.00); Lymphocytes % (A) 8.5 %; MCH 28.3 pg (27.0-32.0); MCHC 32.2 g/dL (32.0-37.0); Mean Platelet Volume 9.8 FL (9.5-12.2); Monocytes # (A) 0.75 X 10*3/uL (0.20-1.00); Monocytes % (A) 6.8 %; NRBC Per 100 WBC 0 X 10*3/uL (0.00-0.01); Neutrophils # (A) 9.36 X 10*3/uL (1.80-7.70); Neutrophils % (A) 84.2 %; Platelet Count 250 X 10*3/uL (140-440); RBC 3.74 X 10*6/uL (4.40-5.60); RDW 13.8 % (11.5-14.5)
--- NOTE | 2025-02-21 10:48 | P.DS ---
Providers Expected date of discharge: 02/21/25 Attending physician: Jose Manuel Arevalo Consults: 02/20/25 07:19 Consult Physician Routine Consulting Provider: Galilea Murry Consult Reason/Comments: medical management Do you want consulting provider notified?: Yes Primary care physician: Galilea Murry - Discharge Diagnosis(es) (1) Osteoarthritis of left hip Current Visit: Yes Status: Acute (2) S/P total hip arthroplasty Current Visit: Yes Status: Acute Hospital Course: This is a 74-year-old male with known history of degenerative arthritis of the left hip. The patient presented for evaluation as an outpatient. After discussion and consideration patient elects to proceed with total hip arthroplasty. The patient is seen preoperatively by Dr. Arevalo and medically cleared for surgery by their primary care physician. Patient is admitted to [facility] on left for total hip arthroplasty. The procedure is performed without complication or sequelae. The patient is doing well postoperatively. Labs and vital signs are stable on day of discharg e. On day of discharge patient's hip incision is healing well. There is minimal erythema. There is no drainage noted at this time. There is minimal soft tissue swelling to the hip and thigh. Patient has full foot and ankle motion without difficulty or pain. Calf is soft and nontender to palpation. Neurovascular status to the left lower extremity is intact. Patient is discharged home in good condition. Please see med rec for accurate list of home medications. Plan - Discharge Summary Discharge Rx Participant: Yes New Discharge Prescriptions: New HYDROcodone/APAP 7.5-325MG [[place] 7.5-325] 1 - 2 tab PO Q6H PRN #32 tab PRN Reason: Pain Sennosides [Senokot] 2 tab PO DAILY PRN #60 tablet PRN Reason: Constipation No Action Pantoprazole Sodium [Protonix] 40 mg PO DAILY Budesonide/Formoterol Fumarate [Symbicort 160-4.5 Mcg Inhaler] 2 puff INHALATION RT-BID PRN PRN Reason: Shortness Of Breath Apixaban [Eliquis] 5 mg PO BID #60 tab Rosuvastatin [Crestor] 5 mg PO HS Metoprolol Tartrate 25 mg PO BID Alfuzosin HCl [Alfuzosin HCl ER] 10 mg PO HS Bactrim Dose Unk 1 tablet PO DIRECTED amLODIPine [Norvasc] 5 mg PO DAILY Discharge Medication List Budesonide/Formoterol Fumarate [Symbicort 160-4.5 Mcg Inhaler] 2 puff INHALATION RT-BID PRN 08/04/17 [History] Pantoprazole Sodium [Protonix] 40 mg PO DAILY 08/04/17 [History] Apixaban [Eliquis] 5 mg PO BID #60 tab 08/06/17 [Rx] Metoprolol Tartrate 25 mg PO BID 03/12/23 [History] Rosuvastatin [Crestor] 5 mg PO HS 03/12/23 [History] Alfuzosin HCl [Alfuzosin HCl ER] 10 mg PO HS 02/14/25 [History] Bactrim Dose Unk 1 tablet PO DIRECTED 02/14/25 [History] amLODIPine [Norvasc] 5 mg PO DAILY 02/14/25 [History] HYDROcodone/APAP 7.5-325MG [[place] 7.5-325] 1 - 2 tab PO Q6H PRN #32 tab 02/20/25 [Rx] Sennosides [Senokot] 2 tab PO DAILY PRN #60 tablet 02/20/25 [Rx] Follow up Appointment(s)/Referral(s): Galilea Murry MD [Primary Care Provider] - 1 Week Jose Manuel Arevalo DO [Doctor of Osteopathic Medicine] - 03/09/25 10:00 am Activity/Diet/Wound Care/Special Instructions: Weightbearing as tolerated with walker. Leave dressing intact. Dressing may be removed by home care nurse or by patient in 7 days. Then change dressing twice daily until follow up. May shower with initial dressing intact and after removal. If dressing become saturated, please remove. Please resume Eliquis. Recommend use of compression stockings daily until follow up to help prevent swelling and blood clots. May remove at night before sleeping. Please follow-up with [facility] in 2 weeks and call with any questions or concerns, . Discharge Disposition: HOME WITH HOME HEALTH SERVICES
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
--- NOTE | 2025-02-21 16:27 | P.PN ---
Subjective Progress Note Date: 02/21/25 HISTORY OF PRESENT ILLNESS: This is a 74-year-old male with a previous medical history significant for hypertension and hypertensive cardiovascular disease, mixed hyperlipidemia, paroxysmal atrial fibrillation, gastroesophageal flux disease, osteoarthritis, enlarged prostate, detrusor instability, patient underwent left total hip arthroplasty that was done successfully by Dr. Arevalo, and we were asked to see the patient for postoperative medical management, patient is laying down in bed in no apparent distress, he denies any chest pain at this time, he denies any shortness of breath, he underwent spinal anesthesia, I spoke with the nursing staff about the importance of the patient not getting his Eliquis until tomorrow morning, patient also will have no feeling as far as controlling his bladder at this point in time, due to the spinal anesthesia, we will watch him for urine incontinence over the next few hours, patient otherwise is feeling okay patient was instructed to use incentive spirometer to reduce the incidence of atelectasis and healthcare associated pneumonia, continue current pain management as outlined by orthopedic surgery as well. 02/21: Patient is sitting up in a chair in no apparent distress, he did the stairs already today, his pain is well-controlled about 4-5, he is using his walker, he is probably will be discharged home later on today, he is tolerating his pain medicine with hydrocodone 7.5/325 1 tablet every 6 hours as needed, patient did receive 1 dose of Dilaudid yesterday, he has no abdominal pain, he did pass some gas, he is urinating well, no evidence of urinary retention at this time, laboratory evaluation were reviewed, I spoke with the patient and the [employer] service from orthopedic service and the patient is medically stable for discharge at this point in time. He has an appointment to follow-up with me as an outpatient on March 01, 2025. REVIEW OF SYSTEMS: Constitutional: No documented fever, no chills, no night sweats. No weight c hange. No weakness, fatigue or lethargy. No daytime sleepiness. EENT: No headache. No blurred vision or double vision, no loss of vision. No loss of Hearing, no ringing in the ears, no dizziness. No nasal drainage or congestion. No epistaxis. No sore throat. Lungs: No shortness of breath, no cough, no sputum production. No wheezing. Reports dyspnea with activity. Cardiovascular: No chest pain, no lower extremity edema. No palpitations. No paroxysmal nocturnal dyspnea. No orthopnea. No lightheadedness or dizziness. No syncopal episodes. Abdominal: Reports no abdominal pain. No nausea, vomiting. No diarrhea. No constipation. No bloody or tarry stools reports no loss of appetite. Genitourinary: No dysuria, increased frequency, urgency. No urinary retention. Musculoskeletal: No myalgias. No muscle weakness, no gait dysfunction, no frequent falls. No back pain. No neck pain, left hip pain Integumentary: No wounds, no lesions. No rash or pruritus. No unusual bruisin g. No change in hair or nails. Neurologic: No aphasia. No facial droop. No change in mentation. No head injury. No headache. No paralysis. No paresthesia. Psychiatric: No depression. No anxiety. No mood swings. Endocrine: No abnormal blood sugars. No weight change. PHYSICAL EXAMINATION: General: 74-year-old male laying down in bed in no distress. HEENT: Head is atraumatic, normocephalic, pupils were equal round reactive to light and recommendation, extraocular muscle movement were intact, sclera nonicteric, conjunctivae were pale, mucous membranes of the mouth are somewhat d ry. Neck: Supple, no JVP, normal carotid upstroke bilaterally, no lymphadenopathy. Chest: Decreased breath sounds at the bases, few rhonchi, no expiratory wheezes, no chest wall tenderness, no intercostal retractions. Heart: First heart sound is normal, second heart sounds normal there is systolic ejection murmur 2/6 located in the left sternal border. Abdomen: Soft, nontender, nondistended, positive bowel sounds. Extremities: There is no edema no calf tenderness DP +2 bilaterally. Left hip dressing in place. Neurologic examination: Patient is awake alert and oriented x3, cranial nerves II-12 appear grossly intact, muscle power were 5 out of 5 in upper extremities and 5 out of 5 in bilateral lower extremities, deep tendon reflexes normal bilaterally. ASSESSMENT AND PLAN: 1. Postoperative day #1 status post left total hip arthroplasty with direct approach. Continue current pain management as outlined by orthopedic surgery, continue the usage of incentive spirometer to reduce the incidence of atelectasis and healthcare associated pneumonia, early ambulation, restarted Eliquis 5 mg orally twice every day and continue that for life. 2. Hypertension and hypertensive cardiovascular disease. Continue patient on metoprolol 25 mg orally twice every day, amlodipine 5 mg orally once every day, monitor the patient blood pressure very closely. 3. Mixed hyperlipidemia. Continue patient on atorvastatin 20 mg once every day, monitor lipid panel, keep LDL 55-70. 4. Paroxysmal atrial fibrillation status post ablation continue patient on metoprolol 25 mg orally twice every day Eliquis 5 mg orally twice every day, start the Eliquis tomorrow morning. 5. History of enlarged prostate status post TURP continue tamsulosin 0.4 mg once every day monitor for urinary retention. 6. History of mild persistent asthma. Continue patient on Symbicort 160/4.5 mcg 2 puffs inhalation twice every day. 7. DVT prophylaxis. Bilateral knee-high FRANCISCO hose, started the patient back on Eliquis 5 mg orally twice every day tomorrow morning. 8. GI prophylaxis. Continue Protonix 40 mg once every day. 9. Patient is medically stable for discharge. Objective - Vital Signs Vital signs: Vital Signs Temp 98.4 F 02/21/25 06:45 Pulse 56 L 02/21/25 06:45 Resp 17 02/21/25 06:45 BP 116/62 02/21/25 06:45 Pulse Ox 98 02/21/25 06:45 FiO2 Intake & Output 02/20/25 02/21/25 02/21/25 18:59 06:59 18:59 Intake Total 951 Output Total 400 Balance 551 Weight 79.6 kg Intake: IV 951 Output: Urine 200 Estimated Blood Loss 200 Other: # Voids 3 2 - Labs CBC & Chem 7: 02/21/25 02:44 Labs: Abnormal Lab Results - Last 24 Hours (Table) 02/21/25 Range/Units 02:44 WBC 11.10 H (4.50-10.00) X 10*3/uL RBC 3.74 L (4.40-5.60) X 10*6/uL Hgb 10.6 L (13.0-17.0) g/dL Hct 32.9 L (39.6-50.0) % Neutrophils # 9.36 H (1.80-7.70) X 10*3/uL Eosinophils # 0 L (0.04-0.35) X 10*3/uL
== END 2025-02-21 12:16 | disposition home health service (06) ==
LOC: OR 05:39 → 4SSUR 08:43 → OR 02-21 12:16
PROVIDERS: ATTEND Orthopaedic Surgery
DX: M16.12 Unilateral primary osteoarthritis, left hip (principal); I25.10 Atherosclerotic heart disease of native coronary artery without angina pectoris; J45.30 Mild persistent asthma, uncomplicated; I48.0 Paroxysmal atrial fibrillation; I11.9 Hypertensive heart disease without heart failure; E78.2 Mixed hyperlipidemia; N40.0 Benign prostatic hyperplasia without lower urinary tract symptoms; Z96.642 Presence of left artificial hip joint; Z80.1 Family history of malignant neoplasm of trachea, bronchus and lung; Z96.651 Presence of right artificial knee joint; Z90.79 Acquired absence of other genital organ(s); Z79.51 Long term (current) use of inhaled steroids; Z79.01 Long term (current) use of anticoagulants; Z79.899 Other long term (current) drug therapy
CPT/HCPCS: 97161; 97166; 64473; 85025; 73501; 27130; C1776; J2250; J1100; J0690 ×2; J2405; J2795